=== PATIENT | male | born 1995 | race Two or more races ===

== ENCOUNTER 2025-05-19 13:34 | Emergency (ER) | payer MEDICAID ==
[~2025-05-19] VITALS: Ht 190.5 cm; Wt 134.1 kg
[2025-05-19 13:50] VITALS: TEMP 97.6
[2025-05-19] MEDS: KETOROLAC TROMETHAMINE 30 MG/ML VIAL IM ONE (18:33)
[2025-05-19 19:20] VITALS: BP 139/84; PULSE 91; RESP 18; O2SAT 96
== END 2025-05-19 19:32 | disposition home or self-care (01) ==
LOC: EMS 13:42
DX: M79.671 Pain in right foot (principal)
CPT/HCPCS: 99283; J1885